=== PATIENT | male | born 1940 | race Caucasian/White ===

== ENCOUNTER → 2016-12-01 | Outpatient (CLI) | payer MEDICARE, BC ==
[~2016-12-01] MED LIST: ALEVE 220MG220 MG PO; ALTACE 10MG TAB10 MG; ALTACE 10MG TAB10 MG PO; AMARYL4 MG PO; ASPIRIN 81M81 MG/TA2 PO; ASPIRIN E.C. 8181 MG; ATIVAN 0.50.5 MG/TAB PO; CEPHALEXIN500 M1 PO; CORDARONE200 MG/TAB PO; ELIQUIS 5MG PO; FLONASE NASAL S16 GM NAS; FORT1000TA PO; LIPITOR 10MG10 MG PO; LIPITOR 80MG80 MG PO; LOPRESSOR 225 MG/TAB PO; MULTAQ400 MG PO; NIZORAL CREAM15 GM TOP; NORVASC 5MG5 MG/TAB PO; OCUVITE1 TA1; PAXIL40 MG PO; SAW PALMETTO S450 MG PO; SYNTHROID0.05 MG/TA PO
== END ==
LOC: COL.RAD 07:20
DX: M16.12 Unilateral primary osteoarthritis, left hip (principal)
CPT/HCPCS: J3301; Q9967

== ENCOUNTER 2017-02-10 08:21 | Inpatient (IN) | payer MEDICARE, BC ==
[2017-02-10] VITALS (43 sets, daily range): BP systolic 158–171; BP diastolic 70–135; PULSE 88–972; TEMP 98.4–98.9; O2SAT 92–95
[~2017-02-10] VITALS: Ht 182.9 cm; Wt 95.1 kg
[~2017-02-10 08:21] MED LIST changes: +FLOMAX 0.40.4 MG/CAP PO; +NIRAVAM0.5 MG PO
[2017-02-10 08:42] LABS: BASO % 0.1 % (0.0-2.0); GRAN % 87.4 % (42.2-75.2); HEMATOCRIT 36.9 % (42.0-52.0); HEMOGLOBIN 12.9 g/dl (13.5-18.0); LYMPH # 1.4 (1.2-3.4); MEAN CELL VOLUME 96 fl (80.0-100.0); MEAN CORPUSCULAR HEMOGLOBIN 33 pg (27.0-31.0); MEAN CORPUSCULAR HGB CONC 35 g/dl (33.0-37.0); MEAN PLATELET VOLUME 10.8 fl (7.4-10.4); MONO # 0.7 (0.1-0.6); MONO % 3.9 % (1.7-9.3); PLATELET COUNT 248 K/mm3 (130-400); RED BLOOD COUNT 3.86 M/mm3 (4.20-5.60); WHITE BLOOD COUNT 17.2 K/mm3 (4.8-10.8)
[2017-02-10 08:48] LABS: ADJUSTED CALCIUM 9.4 mg/dL (8.4-10.2); ALBUMIN 4.1 gm/dL (3.5-5.0); BILIRUBIN,TOTAL 0.5 mg/dL (0.0-1.0); CALCIUM 9.5 mg/dL (8.4-10.2); CREATININE, serum 0.65 mg/dL (0.66-1.25); POTASSIUM 4.5 mmol/L (3.4-5.0); TOTAL PROTEIN 6.2 gm/dL (6.4-8.2)
[2017-02-10 08:52] LABS: INR 1.1 (0.8-3.0); PROTHROMBIN TIME 12.3 SECONDS (9.7-12.8)
[2017-02-10 09:00] LABS: TROPONIN-I 0.018 ng/mL (0.000-0.034)
[2017-02-10 09:34] LABS: COLLECTION METHOD CLEAN CATCH
[2017-02-10 09:52] LABS: MUCOUS Present /lpf; PH 5 (5-8); SQUAMOUS EPITHELIAL None Seen /hpf; URINE APPEARANCE Clear; URINE BACTERIA Rare /hpf; URINE BILIRUBIN Negative (NEGATIVE); URINE BLOOD Negative (NEGATIVE); URINE COLOR Yellow; URINE GLUCOSE 3+ (NEGATIVE); URINE KETONE Trace (NEGATIVE); URINE LEUKOCYTE ESTERASE Negative (NEGATIVE); URINE PROTEIN(semi-quant) Negative (NEGATIVE)
[2017-02-10 12:12] LABS: TSH w REFLEX 0.049 uIU/mL (0.465-4.680)
[2017-02-10] MEDS ORDERED: PAXIL40 MG PO (13:12)
[2017-02-10] MEDS ORDERED: MOBIC 7.5MG7.5 MG PO (13:13)
[2017-02-10 16:43] LABS: CHOLESTEROL RISK RATIO 2.2
[2017-02-11] VITALS (574 sets, daily range): BP systolic 166–187; BP diastolic 64–99; PULSE 64–85; TEMP 97–100.2; O2SAT 88–98
[2017-02-11 05:37] LABS: BASO # 0.1 (0.0-0.2); BASO % 0.4 % (0.0-2.0); EOS % 0.1 % (0-4.0); GRAN # 11.4 (1.4-6.5); GRAN % 80.1 % (42.2-75.2); HEMATOCRIT 40.5 % (42.0-52.0); HEMOGLOBIN 13.9 g/dl (13.5-18.0); LYMPH # 1.8 (1.2-3.4); LYMPH % 12.5 % (20.0-51.0); MEAN CELL VOLUME 96 fl (80.0-100.0); MEAN CORPUSCULAR HEMOGLOBIN 33 pg (27.0-31.0); MEAN CORPUSCULAR HGB CONC 34 g/dl (33.0-37.0); MEAN PLATELET VOLUME 10.4 fl (7.4-10.4); MONO # 0.9 (0.1-0.6); MONO % 6.5 % (1.7-9.3); PLATELET COUNT 240 K/mm3 (130-400); RED BLOOD COUNT 4.24 M/mm3 (4.20-5.60); WHITE BLOOD COUNT 14.2 K/mm3 (4.8-10.8)
[2017-02-11 05:51] LABS: CREATININE, serum 0.61 mg/dL (0.66-1.25); POTASSIUM 4.2 mmol/L (3.4-5.0)
[2017-02-11 13:26] LABS: PROLACTIN 9.2 ng/mL (3.7-17.9)
[2017-02-12] VITALS (1225 sets, daily range): BP systolic 168–194; BP diastolic 83–101; PULSE 84–109; TEMP 97–98.3; O2SAT 90–98
[2017-02-12 02:41] LABS: BASO # 0.1 (0.0-0.2); BASO % 0.3 % (0.0-2.0); GRAN # 15.8 (1.4-6.5); GRAN % 84.2 % (42.2-75.2); HEMATOCRIT 43.7 % (42.0-52.0); HEMOGLOBIN 15.4 g/dl (13.5-18.0); LYMPH # 1.6 (1.2-3.4); LYMPH % 8.4 % (20.0-51.0); MEAN CELL VOLUME 93 fl (80.0-100.0); MEAN CORPUSCULAR HEMOGLOBIN 33 pg (27.0-31.0); MEAN CORPUSCULAR HGB CONC 35 g/dl (33.0-37.0); MEAN PLATELET VOLUME 10.9 fl (7.4-10.4); MONO # 1.3 (0.1-0.6); MONO % 6.7 % (1.7-9.3); PLATELET COUNT 249 K/mm3 (130-400); RED BLOOD COUNT 4.69 M/mm3 (4.20-5.60); WHITE BLOOD COUNT 18.7 K/mm3 (4.8-10.8)
[2017-02-12 02:50] LABS: CALCIUM 9.2 mg/dL (8.4-10.2); CREATININE, serum 0.58 mg/dL (0.66-1.25); MAGNESIUM 1.8 mg/dL (1.6-2.3)
[2017-02-12 06:42] LABS: HEMATOCRIT 42.1 % (42.0-52.0); HEMOGLOBIN 14.9 g/dl (13.5-18.0); MEAN CELL VOLUME 93 fl (80.0-100.0); MEAN CORPUSCULAR HEMOGLOBIN 33 pg (27.0-31.0); MEAN CORPUSCULAR HGB CONC 35 g/dl (33.0-37.0); MEAN PLATELET VOLUME 10.5 fl (7.4-10.4); PLATELET COUNT 253 K/mm3 (130-400); RED BLOOD COUNT 4.51 M/mm3 (4.20-5.60); WHITE BLOOD COUNT 18.5 K/mm3 (4.8-10.8)
[2017-02-13] VITALS (435 sets, daily range): BP systolic 182–216; BP diastolic 85–96; PULSE 80–87; TEMP 97.5–99; O2SAT 88–97
[2017-02-13 06:55] LABS: CALCIUM 9.2 mg/dL (8.4-10.2); CREATININE, serum 0.58 mg/dL (0.66-1.25); POTASSIUM 3.6 mmol/L (3.4-5.0)
== END 2017-02-14 11:32 | disposition expired | DRG 65 ==
LOC: COL.ER 08:21 → ICU 10:18 → MEDICAL 10:18 → ICU 21:32 → MEDICAL 02-13 16:35
PROVIDERS: Emergency Medicine; Internal Medicine; Nurse Practitioner Family; Physician Assistant; Psychiatry & Neurology Neurology
DX: I63.232 Cerebral infarction due to unspecified occlusion or stenosis of left carotid arteries (principal); G81.01 Flaccid hemiplegia affecting right dominant side; I50.32 Chronic diastolic (congestive) heart failure; Z51.5 Encounter for palliative care; R47.01 Aphasia; E11.9 Type 2 diabetes mellitus without complications; I11.0 Hypertensive heart disease with heart failure; I48.0 Paroxysmal atrial fibrillation; Z87.891 Personal history of nicotine dependence; D64.9 Anemia, unspecified; I16.0 Hypertensive urgency; I65.22 Occlusion and stenosis of left carotid artery
CPT/HCPCS: 99222-AI; 99233-AI; J0282; J1644; J1815; J1953; J2060; J2270; J2405; J2543; J7030; J7050; J7060; Q9967